=== PATIENT | female | born 1940 | race Caucasian/White ===

== ENCOUNTER 2016-07-12 09:28 | Emergency (ER) | payer OTHER ==
[~2016-07-12] VITALS: Wt 56.0 kg
[~2016-07-12 09:28] MED LIST: ACET325T33 PO; CALC1CAP9 PO; CHOL2000 PO; HYDR-3498 PO; LEVO250T35 PO; LEVO25TA53 PO; LISI20TA11 PO; SIMV20TA PO
[2016-07-12] MEDS ORDERED: KETOROLAC 30 MG INJ IM STA (10:28)
[2016-07-12] MEDS ORDERED: NAPR-260 PO (10:32)
--- NOTE | 2016-07-12 10:36 | ERD ---
ER Documentation Chief Complaint Date/Time DATE: 07/12/16 TIME: 10:32 Chief Complaint RIGHT UPPER ARM PAIN, ONSET TODAY, NO INJURY HPI Patient is a 76-year-old female with past medical history of thyroid disease, hypertension, hyperlipidemia, osteoporosis, who presents emergency department with right upper arm pain which started today. Patient states yesterday the patient was attempting to shake out a dry in her refrigerator while cleaning it. Patient states this morning after trying to use the broom she developed sudden pain in her right upper extremity. Patient denies any falls or trauma. Patient reports taking naproxen at 6 AM for pain. Patient states that she has had some alleviation of pain however persist. Pain is worse with movement. Patient states current pain level is a 9 out of 10. Patient has normal range of motion of her fingers, wrist and elbow. Patient does report decreased range of motion of her shoulder secondary to pain. Patient is right-hand dominant. Patient denies any previous injuries affected extremity. Patient denies any chest pain, shortness of breath, headaches, dizziness, nausea, vomiting or loss consciousness. Patient denies taking her blood pressure medication this morning. ROS All systems reviewed and are negative except as per history of present illness. Medications Home Meds Active Scripts Naproxen* (Naprosyn*) 500 Mg Tablet, 500 MG PO BID Y for PAIN AND/OR INFLAMMATION, #30 TAB Prov:MAGO SCHROEDER PA-C 07/12/16 Levofloxacin* (Levaquin*) 250 Mg Tablet, 250 MG PO DAILY, #10 TAB Prov:RHONDA YANG 02/04/15 Hydrocodone Bit/Acetaminophen (Anexsia 5-325 Mg Tablet) 1 Tab Tab, 1 TAB PO Q6H Y for PAIN LEVEL 6-10, #30 TAB Prov:RHONDA YANG 02/04/15 Acetaminophen* (Tylenol*) 325 Mg Tablet, 1 TAB PO Q6 Y for PAIN AND OR ELEVATED TEMP, #20 TAB Prov:CINDY MANN 09/10/14 Reported Medications Cholecalciferol* (Vitamin D3*) 2,000 Unit Cap, 2000 UNIT PO DAILY, CAP 02/01/15 Calcium Carbonate-Vitamin D3 (Calcium 600 + D Softgel) 1 Each Capsule, 1 CAP PO DAILY, CAP 02/01/15 Simvastatin* (Zocor*) 20 Mg Tablet, 20 MG PO QHS, #30 TAB 02/01/15 Levothyroxine Sodium* (Levothyroxine Sodium*) 25 Mcg Tablet, 25 MCG PO BEFORE BREAKFAST, #30 TAB 02/01/15 Lisinopril* (Lisinopril*) 20 Mg Tablet, 20 MG PO DAILY, #30 TAB 02/01/15 Allergies Allergies: Coded Allergies: No Known Allergy (Unverified , 02/04/15) PMhx/Soc Medical and Surgical Hx: pt denies Surgical Hx History of Surgery: No Anesthesia Reaction: No Hx Neurological Disorder: No Hx Respiratory Disorders: No Hx Cardiac Disorders: Yes (HTN, HDL) Hx Psychiatric Problems: No Hx Miscellaneous Medical Probl: Yes (HYPERTHYROID, OSTEOPOROSIS) Hx Alcohol Use: No Hx Substance Use: No Hx Tobacco Use: No Smoking Status: Never smoker Physical Exam Vitals Vital Signs Date Time Temp Pulse Resp B/P Pulse Ox O2 Delivery O2 Flow Rate FiO2 07/12/16 09:31 96.8 67 17 178/91 100 Physical Exam GENERAL: Well-developed, well-nourished female. Appears in no acute distress. HEAD: Normocephalic, atraumatic. EYES: Pupils are equally reactive bilaterally. EOMs grossly intact. No conjunctival erythema. ENT: Moist mucous membranes. No uvula deviation. No kissing tonsils. NECK: Supple. No meningismus. Normal range of motion of the neck. LUNG: Clear to auscultation bilaterally. No rhonchi, wheezing, rales or coarse breath sounds. HEART: Regular rate and rhythm. No murmurs, rubs or gallops. EXTREMITIES: Equal pulses bilaterally. No peripheral clubbing, cyanosis or edema. No unilateral leg swelling. NEUROLOGIC: Alert and oriented. Moving all four extremities without any difficulty. Normal speech. Steady gait. SKIN: Normal color. Warm and dry. No rashes or lesions. RUE: No obvious deformity, erythema, ecchymosis or swelling. Skin intact. Full range of motion of the wrist, elbow. Decreased range of motion of the shoulder secondary to pain. Tender to palpation of the anterior shoulder, proximal humerus. Non-tender to palpation of the distal humerus, elbow, forearm or wrist.. Sensation intact to light touch. Neurovascularly intact. (Able to give thumbs up, make an ok sign, cross digits 2 and 3, thumb to pinky opposition. 2+ RP.) No snuffbox tenderness. Results 24 hrs Current Medications Medications (Trade) Dose Ordered Sig/Adrianna Route PRN Reason Start Time Stop Time Status Last Admin Dose Admin Ketorolac Tromethamine (Toradol) 30 mg ONCE STAT IM 07/12/16 10:28 07/12/16 10:29 DC 07/12/16 11:11 Procedures/MDM ED COURSE: The patient was stable throughout ED course. I kept the patient and/or family informed of laboratory and diagnostic imaging results throughout the ED course. DIAGNOSTIC IMAGING: Read by radiologist. DIAGNOSTIC IMAGING REPORT Patient: [address] : 1940 Age: 76 Sex: F MR #: [id number] DOS: 07/12/16 1028 Ordering MD: MAGO SCHROEDER PA-C Location: [facility] Room/Bed: PROCEDURE: XR Elbow. CLINICAL INDICATION: Right elbow pain TECHNIQUE: Three views of the right elbow are available for review COMPARISON: None available FINDINGS: There is normal mineralization and alignment of the bones of the elbow. There is no elevation of the anterior or posterior fat pads to suggest joint effusion. No acute fractures are identified. The surrounding soft tissues are grossly unremarkable. IMPRESSION: 1. Unremarkable right elbow x-ray series. RPTAT: AA .Shawn Palumbo MD, MD Date Time Electronically viewed and signed by .Shawn Palumbo MD, MD on 2016 11:38 .B/ CC: MAGO SCHROEDER PA-C DIAGNOSTIC IMAGING REPORT Patient: [address] : 1940 Age: 76 Sex: F MR #: [id number] DOS: 07/12/16 1028 Ordering MD: MAGO SCHROEDER PA-C Location: [facility] Room/Bed: PROCEDURE: XR Shoulder. CLINICAL INDICATION: Right shoulder pain TECHNIQUE: 3 views of the right shoulder are available for review. COMPARISON: None available FINDINGS: There is normal mineralization and alignment of the bones of the right shoulder. No acute fracture or dislocation is identified. There are mild degenerative changes of the right glenohumeral joint. There are mild degenerative changes of the right acromioclavicular joint. The visualized portions of the right chest wall are grossly unremarkable. The soft tissues are within normal limits. IMPRESSION: 1. Mild degenerative change of the right shoulder. 2. Otherwise unremarkable right shoulder series . RPTAT: AA .Shawn Palumbo MD, MD Date Time Electronically viewed and signed by .Shawn Palumbo MD, on 2016 11:39 .B/ CC: MAGO SCHROEDER PA-C PROCEDURES: None. MEDICATIONS GIVEN: Toradol IM Patient tolerated medication well with no adverse reactions. Patient reported improvement in pain. MEDICAL DECISION MAKING: This is a 76-year-old female presents with right arm pain after attempting to lift heavy tray while cleaning up the fridge as well as using the broom to sweep. Vital signs were reviewed. Patient was afebrile. XR imaging right elbow are unremarkable. X-ray imaging of the right shoulder showed mild degenerative changes. Otherwise unremarkable right shoulder series. Given these findings, the patient's presentation is most consistent with shoulder sprain. I have a much lower clinical concern for shoulder dislocation, shoulder fracture, clavicle fracture, humerus fracture, medial epicondylitis, olecranon bursitis, osteomyelitis, rheumatoid arthritis, or compartment syndrome. PRESCRIPTIONS: Naproxen DISCHARGE: At this time, patient is stable for discharge and outpatient management. Patient advised to take blood pressure medication upon going home. RICE therapy and ROM exercises were advised to avoid stiffness. I have instructed the patient to follow-up with his/her primary care physician in 1-2 days. I have discussed with the patient the possibility of needing to see an records specialist for further workup and imaging if the pain persists. I have instructed the patient to promptly return to the ER for any new or worsening symptoms including increased pain, swelling, redness, warmth or fever. The patient and/or family expressed understanding of and agreement with this plan. All questions were answered. Home care instructions were provided. Patient's blood pressure was elevated (>120/80) but appears stable without evidence of hypertensive emergency, hypertensive urgency or end-organ failure. I had discussion with the patient about the risks of hypertension. I have advised the patient to follow up with his/her primary care physician for outpatient monitoring and treatment for hypertension in 2-3 days. I have instructed the patient to return to the ER for any new or worsening symptoms including chest pain, shortness of breath, headache, blurred vision, confusion, nausea, vomiting or LOC. Departure Diagnosis: Primary Impression: Pain of right arm Condition: Stable Patient Instructions: Shoulder Pain (Uncertain Cause) Referrals: [facility] YOU HAVE RECEIVED A MEDICAL SCREENING EXAM AND THE RESULTS INDICATE THAT YOU DO NOT HAVE A CONDITION THAT REQUIRES URGENT TREATMENT IN THE EMERGENCY DEPARTMENT. FURTHER EVALUATION AND TREATMENT OF YOUR CONDITION CAN WAIT UNTIL YOU ARE SEEN IN YOUR DOCTORS OFFICE WITHIN THE NEXT 1-2 DAYS. IT IS YOUR RESPONSIBILITY TO MAKE AN APPOINTMENT FOR FOL- CARE. IF YOU HAVE A PRIMARY DOCTOR --you should call your primary doctor and schedule an appointment IF YOU DO NOT HAVE A PRIMARY DOCTOR YOU CAN CALL OUR PHYSICIAN REFERRAL HOTLINE AT IF YOU CAN NOT AFFORD TO SEE A PHYSICIAN YOU CAN CHOSE FROM THE FOLLOWING [facility] [address] [facility]. [facility] [address] [facility]. [facility] [address] [facility] [address] [facility] [address] [facility] [facility]. [address] [facility]. [facility] YOU HAVE RECEIVED A MEDICAL SCREENING EXAM AND THE RESULTS INDICATE THAT YOU DO NOT HAVE A CONDITION THAT REQUIRES URGENT TREATMENT IN THE EMERGENCY DEPARTMENT. FURTHER EVALUATION AND TREATMENT OF YOUR CONDITION CAN WAIT UNTIL YOU ARE SEEN IN YOUR DOCTORS OFFICE WITHIN THE NEXT 1-2 DAYS. IT IS YOUR RESPONSIBILITY TO MAKE AN APPOINTMENT FOR OW-UP CARE. IF YOU HAVE A PRIMARY DOCTOR --you should call your primary doctor and schedule and appointment IF YOU DO NOT HAVE A PRIMARY DOCTOR YOU CAN CALL OUR PHYSICIAN REFERRAL HOTLINE AT . IF YOU CAN NOT AFFORD TO SEE A PHYSICIAN YOU CAN CHOSE FROM THE FOLLOWING [facility] INSTITUTIONS: [facility] [address] [place] [address] [facility] [address] [place], [place] [id number] [place] [address] [address] [place] [address] [facility] Hours: Mon-Fri 9:00 AM - 5:00 PM Additional Instructions: Llame al doctor MAANA y estela luz maria BESS PARA DENTRO DE 1-2 HOFF.Dgale a la secretaria que nosotros le instruimos hacer esta bess.Avise o llame si garrison condicin se empeora antes de la bess. Regresa aqui si peor o no mejor. We will to rule out any ligament or tendon injuries at this time. Patient advised to follow-up with an records specialist if pain persist. MAGO SCHROEDER PA-C July 12, 2016 10:36
--- NOTE | 2016-07-12 11:38 | RADRPT ---
PROCEDURE: XR Elbow. CLINICAL INDICATION: Right elbow pain TECHNIQUE: Three views of the right elbow are available for review COMPARISON: None available FINDINGS: There is normal mineralization and alignment of the bones of the elbow. There is no elevation of th e anterior or posterior fat pads to suggest joint effusion. No acute fractures are identified. The surrounding soft tissues are grossly unremarkable. IMPRESSION: 1. Unremarkable right elbow x-ray series. RPTAT: AA .Shawn Palumbo MD, MD Date Time Electronically viewed and signed by .Shawn Palumbo MD, on 07/12/2016 11:38 .B/
--- NOTE | 2016-07-12 11:39 | RADRPT ---
PROCEDURE: XR Shoulder. CLINICAL INDICATION: Right shoulder pain TECHNIQUE: 3 views of the right shoulder are available for review. COMPARISON: None available FINDINGS: There is normal mineralization and alignment of the bones of the right shoulder. No acute fracture or dislocation is identified. There are mild degenerative changes of the right glenohumeral joint. There are mild degenerative changes of the right acromioclavicular joint. The visualized portions of the right chest wall are grossly unremarkable. The soft tissues are within normal limits. IMPRESSION: 1. Mild degenerative change of the right shoulder. 2. Otherwise unremarkable right shoulder series . RPTAT: AA .Shawn Palumbo MD, MD Date Time Electronically viewed and signed by .Shawn Palumbo MD, on 07/12/2016 11:39 .B/
== END 2016-07-12 12:25 | disposition home or self-care (01) ==
LOC: FTE 09:28
DX: M79.601 Pain in right arm (principal); I10 Essential (primary) hypertension
CPT/HCPCS: 73030; 73080; J1885; 96372

== ENCOUNTER 2018-04-27 12:03 | Emergency (ER) | payer OTHER ==
[~2018-04-27] VITALS: Ht 165.1 cm; Wt 53.5 kg
[~2018-04-27 12:03] MED LIST changes: +LEVO250T22 PO; -LEVO250T35 PO; -LEVO25TA53 PO; +LEVO25TA6 PO; +LISI-471 PO; -LISI20TA11 PO; +NAPR-985 PO
[2018-04-27 12:11] VITALS: BP 206/93; PULSE 76; RESP 20; Ht 165.1 cm; Wt 53.5 kg
[2018-04-27] MEDS ORDERED: LIDOCAINE 2% (MDV) 20 ML INJ INJ STA (15:16)
--- NOTE | 2018-04-27 15:29 | ERD ---
ER Documentation Chief Complaint Chief Complaint Complains of a laceration to left hand since this am, HTN HPI This is a 77-year-old female with a history of hypertension, hypothyroidism and hypercholesteremia who presents ED with laceration to left dorsal hand that was sustained earlier today. Patient states that she is very hyper happy and the puppy started running around a tree causing her to hit left hand on tree. Patient denies any fall or loss of consciousness with this event. Patient did not strike head. Denies headache, worst headache of life, dizziness, lightheadedness, blurry vision, changes in vision, chest pain, shortness breath, trouble breathing, tingling, numbness, lack sensation, decreased range of motion. Does not take blood thinners. Tetanus up-to-date ROS All systems reviewed and are negative except as per history of present illness. Medications Home Meds Active Scripts Naproxen* (Naprosyn*) 500 Mg Tablet, 500 MG PO BID PRN for PAIN AND/OR INFLAMMATION, #30 TAB Prov:MAGO SCHROEDER PA-C 07/12/16 Levofloxacin* (Levaquin*) 250 Mg Tablet, 250 MG PO DAILY, #10 TAB Prov:RHONDA YANG 02/04/15 Hydrocodone Bit/Acetaminophen (Anexsia 5-325 Mg Tablet) 1 Tab Tab, 1 TAB PO Q6H PRN for PAIN LEVEL 6-10, #30 TAB Prov:ZACH YANGRoxie QUARLES 02/04/15 Acetaminophen* (Tylenol*) 325 Mg Tablet, 1 TAB PO Q6 PRN for PAIN AND OR ELEVATED TEMP, #20 TAB Prov:CINDY MANN 09/10/14 Reported Medications Cholecalciferol* (Vitamin D3*) 2,000 Unit Cap, 2000 UNIT PO DAILY, CAP 02/01/15 Calcium Carbonate-Vitamin D3 (Calcium 600 + D Softgel) 1 Each Capsule, 1 CAP PO DAILY, CAP 02/01/15 Simvastatin* (Zocor*) 20 Mg Tablet, 20 MG PO QHS, #30 TAB 02/01/15 Levothyroxine Sodium* (Levothyroxine Sodium*) 25 Mcg Tablet, 25 MCG PO BEFORE BREAKFAST, #30 TAB 02/01/15 Lisinopril* (Lisinopril*) 20 Mg Tablet, 20 MG PO DAILY, #30 TAB 02/01/15 Allergies Allergies: Coded Allergies: No Known Allergy (Unverified , 02/04/15) PMhx/Soc History of Surgery: No Anesthesia Reaction: No Hx Neurological Disorder: No Hx Respiratory Disorders: No Hx Cardiac Disorders: Yes (HTN, HDL) Hx Psychiatric Problems: No Hx Miscellaneous Medical Probl: Yes (HYPERTHYROID, OSTEOPOROSIS) Hx Alcohol Use: No Hx Substance Use: No Hx Tobacco Use: No FmHx Family History: No diabetes Physical Exam Vitals Vital Signs Date Temp Pulse Resp B/P (MAP) Pulse Ox O2 O2 Flow FiO2 Time Delivery Rate 04/27/18 97.8 76 20 206/93 98 12:11 (130) Physical Exam Const: No acute distress Head: Atraumatic Eyes: Normal Conjunctiva ENT: Normal External Ears, Nose and Mouth. Neck: Full range of motion. No meningismus. Resp: Clear to auscultation bilaterally Cardio: Regular rate and rhythm, no murmurs Ext: No cyanosis, or edema Upper Extremity -left Skin: There is a laceration on patient's left dorsal hand that is 7.5 cm, jagged Compartments: Soft Motor: Full active range of motion shoulder/elbow/wrist/hand Sensation: Intact shoulder/pinky/middle finger/thumb web space Bones: Nontender humerus/elbow/forearm/wrist/hand Snuffbox: Nontender Joints: No effusion Pulses/Perfusion: 2+ radial, Capillary refill < 2 seconds Radial ulnar and median nerve tested for sensory and motor deficit with no abnormalities Neur: Awake and alert Psych: Normal Mood and Affect Results 24 hrs Current Medications Medications Dose Sig/Adrianna Start Time Status Last (Trade) Ordered Route PRN Stop Time Admin Dose Reason Admin Lidocaine 20 ml ONCE STAT 04/27/18 DC (Xylocaine INJ 15:16 2% (Mdv) 20 04/27/18 15:18 ml) Procedures/MDM EKG, MONITORS, & DIAGNOSTIC IMAGING: [address] [address] Radiology Main Line: [phone] DIAGNOSTIC IMAGING REPORT Patient: [address] : 1940 Age: 77 Sex: F MR #: [id number] DOS: 04/27/18 1516 Ordering MD: VIDYA LONGORIA PA-C Location: [facility]TE Room/Bed: PROCEDURE: XR Left Hand. CLINICAL INDICATION: Left hand pain. TECHNIQUE: Three views of the left hand were obtained. COMPARISON: No prior studies are available for comparison. FINDINGS: The bones of the hand appear intact, with no evidence of fracture, dislocation, or subluxation. Spurs are seen at the first and interval phalangeal joint and second distal interphalangeal joint. Small spurs are also seen at the first carpal metacarpal joint. Bone mineralization is normal. There is irregularity of the dorsal soft tissues consistent with injury. No evidence of radiopaque fore ign body is visualized. IMPRESSION: Dorsal soft tissue injury without foreign body or fracture RPTAT: [facility] Physician Rik Date Time Electronically viewed and signed by Physician Rik on 04/27/2018 16:19 RL/ CC: VIDYA LONGORIA PA-C [id number] PROCEDURES: Laceration Repair by me: Anesthesia: 1% lidocaine locally Location: LEFT DORSAL HAND Tendon/Joint/Nerves: No injury Foreign body: None detected after copious irrigation and exploration Technique: 15 Simple Interrupted Sutures Complexity: No subcutaneous sutures/mucosal repair/edge excision Post Closure Length: 7.5cm Patient's bleeding was easily controlled in the department and there is no indication of anemia. No evidence of compartment syndrome, neurologic injury, vascular injury, open joint, tendon laceration, or foreign body. Patient is appropriate for outpatient follow up. 48 hour wound check. Scar minimization instructions given. ER COURSE: The patient was offered Tylenol but states she took it at home The patient was stable throughout ED course. I kept the patient and/or family informed of laboratory and diagnostic imaging results throughout the emergency room course. The patient was promptly evaluated and a treatment plan was devised based on H&P and other data. This plan was discussed with the patient who agreed and had no further questions or concerns prior to discharge. MEDICAL DECISION MAKING: Laceration was repaired in ED and instructions for post care were discussed. No evidence of compartment syndrome, neurologic injury, vascular injury, open joint, tendon laceration, fracture, dislocation, or foreign body. Patient's vitals are stable and pt can be managed with close out patient follow up. Advised patient to return to ED or to be seen by primary care for a 48 hour wound check. Pt will also need to return to ED or be seen by primary care provider to have sutures removed in 12-14 days. Return to ED with any worsening symptoms and if patient starts experiencing fever, chills, purulent drainage, warmth, swelling at laceration site this may be indications that wound has become infected and patient may need antibiotics. DISPOSITION PLAN: We discussed follow up with the patient's primary care doctor within 24 to 48 hours. Patient counseled regarding my diagnostic impression and care plan. Prior to discharge all questions answered. Pt agrees with treatment plan and understands strict return precautions. Precautionary instructions provided including instructions to return to the ER if not improving or for any worsening or changing symptoms or concerns. SPECIALIST FOLLOW UP RECOMMENDED: None Patient has been advised to follow up with primary care in 1-2 days. Disclaimer: Inadvertent spelling and grammatical errors are likely due to EHR/dictation software use and do not reflect on the overall quality of patient care. Also, please note that the electronic time recorded on this note does not necessarily reflect the actual time of the patient encounter. Departure Diagnosis: Primary Impression: Laceration Condition: Stable Patient Instructions: Laceration, Hand Referrals: [facility] Additional Instructions: Paciente aconseja volver a Departamento de urgencias inmediatamente para sntomas nuevos o que empeoran . Paciente aconseja posteriores con el PCP en 1-2 modi . Paciente verbaliza la comprehensin y est de acuerdo con el tratamiento y el curso de accin. Si el paciente no tiene ninguna de atencin primaria pueden seguir con [facility] [address] [place] [address] o [facility] + [address] [address] VIDYA LONGORIA PA-C Apr 27, 2018 15:29
== END 2018-04-27 17:47 | disposition home or self-care (01) ==
LOC: FTE 12:03
DX: S61.412A Laceration without foreign body of left hand, initial encounter (principal); I10 Essential (primary) hypertension; E03.9 Hypothyroidism, unspecified; W22.8XXA Striking against or struck by other objects, initial encounter; Y92.9 Unspecified place or not applicable